=== PATIENT | female | born 1960 | race Caucasian/White ===

== ENCOUNTER 2018-10-21 14:30 | Emergency (ER) | payer MEDICAID ==
[~2018-10-21] VITALS: Ht 170.2 cm; Wt 59.1 kg
[2018-10-21 14:49] VITALS: BP 150/92
--- NOTE | 2018-10-21 15:21 | NUR ---
PT SEEN AND DC'D BY PROVIDER
== END 2018-10-21 15:21 | disposition home or self-care (01) ==
LOC: ER 14:31
DX: L29.8 Other pruritus (principal); Z88.5 Allergy status to narcotic agent
CPT/HCPCS: 99281